=== PATIENT | female | born 1980 | race Caucasian/White ===

== ENCOUNTER 2018-02-04 10:14 | Outpatient (CLI) | payer OTHER, BC ==
[2018-02-04 12:42] LABS: RUPTURE FETAL MEMBRANES NEGATIVE (NEGATIVE)
== END 2018-02-04 13:30 | disposition home or self-care (01) ==
LOC: OBT 10:14 → L-D 10:14 → OBT 13:30
DX: O09.293 Supervision of pregnancy with other poor reproductive or obstetric history, third trimester (principal); O36.8330 Maternal care for abnormalities of the fetal heart rate or rhythm, third trimester, not applicable or unspecified; O09.523 Supervision of elderly multigravida, third trimester; Z3A.36 36 weeks gestation of pregnancy
CPT/HCPCS: 76818; 84112

== ENCOUNTER 2018-02-11 08:32 | Outpatient (CLI) | payer OTHER ==
[2018-02-11 11:53] LABS: RUPTURE FETAL MEMBRANES NEGATIVE (NEGATIVE)
== END 2018-02-11 12:20 | disposition home or self-care (01) ==
LOC: OBT 08:32 → L-D 08:33 → OBT 12:20
DX: O09.293 Supervision of pregnancy with other poor reproductive or obstetric history, third trimester (principal); O36.8330 Maternal care for abnormalities of the fetal heart rate or rhythm, third trimester, not applicable or unspecified; O09.523 Supervision of elderly multigravida, third trimester; Z3A.38 38 weeks gestation of pregnancy
CPT/HCPCS: 76815; 76818; 84112